=== PATIENT | male | born 1990 | race Caucasian/White ===

== ENCOUNTER 2017-11-01 13:08 | Emergency (ER) | payer OTHER ==
[2017-11-01 13:17] VITALS: TEMP 98.2
--- NOTE | 2017-11-01 14:51 | EDPHY ---
H & P Time Seen by Provider: 11/01/17 14:41 HPI/ROS: CHIEF COMPLAINT: Anxiety, hyperventilation, carpal pedal spasms HISTORY OF PRESENT ILLNESS: 27-year-old male generally healthy states that while he was studying he developed sudden onset of hyperventilation, dyspnea, carpal pedal spasms which continued until he arrived in the waiting room. He is currently asymptomatic. He denies cocaine or illicit drug use. Denies syncope or near-syncope. Denies chest pain. Denies back pain. REVIEW OF SYSTEMS: A ten point review of systems was performed and is negative with the exception of the items mentioned in the HPI PAST MEDICAL & SURGICAL HISTORY: No pertinent medical or surgical history SOCIAL HISTORY: No cocaine use PHYSICAL EXAM (Prior to examination, patient consented to physical exam, hands were washed and my usual and customary physical exam procedures followed) 1) GENERAL: Well-developed, well-nourished, alert and oriented. Appears to be in no acute distress. 2) HEAD: Normocephalic, atraumatic 3) HEENT: Pupils equal, round, reactive to light bilaterally. Sclera anicteric. Nasopharynx, oropharynx, clear, no lesions. Ears bilaterally with normal tympanic membranes. 4) NECK: Full range of motion, no meningeal signs. No bruit 5) LUNGS: Clear auscultation bilaterally, no wheezes, no rhonchi, no retractions. 6) HEART: Regular rate and rhythm, no murmur, no heave, no gallop. 7) ABDOMEN: No guarding, no rebound, no focal tenderness, negative McBurney's, negative Ramey's, negative Rovsing's, negative peritoneal sign, 8) MUSCULOSKELETAL: Moving all extremities, no focal areas of tenderness, no obvious trauma. No peripheral edema or discoloration. 9) BACK: No CVA tenderness, no midline vertebral tenderness, no fluctuance, no step-off, no obvious trauma, no visual or palpable abnormality. 10) SKIN: No rash, no petechiae. 11) Psychiatric: Patient is oriented X 3, there is no agitation. 12) NEURO: Awake, alert, and oriented to person, place and time. Answers questions appropriately. There were no obvious focal neurologic abnormalities. No cerebellar dysfunction. Normal steady gait. Upper and lower extremities bilaterally with strength 5 / 5, reflexes 2+. DIFFERENTIAL DIAGNOSIS: in no particular include but limited to pulmonary embolus, pneumothorax, acute anxiety reaction, Smoking Status: Never smoked Constitutional: Initial Vital Signs Temperature (C) 36.8 C 11/01/17 13:14 Heart Rate 95 11/01/17 13:14 Respiratory Rate 26 H 11/01/17 13:14 Blood Pressure 132/85 H 11/01/17 13:14 O2 Sat (%) 99 11/01/17 13:14 O2 Delivery Mode Room Air Allergies/Adverse Reactions: No Known Allergies Allergy (Verified 07/20/15 15:58) Home Medications: Medication Instructions Recorded Acid Pill 03/24/15 Ondansetron Odt [Zofran Odt 4 mg 4 mg PO Q4 PRN #6 tab 03/24/15 (*)] Pantoprazole Sodium [Protonix 40mg 40 mg PO DAILY #20 tab 03/24/15 (*)] LORazepam [Ativan 1 mg (RX)] 1 mg PO Q6 PRN #7 tab 11/01/17 MDM/Departure - [facility] ED Course/Re-evaluation: This patient is currently asymptomatic, his vital signs have been obtained, he is no longer tachypneic. I think his symptoms were more than likely secondary to acute anxiety reaction. Doubt PE, doubt pneumothorax. I do not think that diagnostic studies indicated from the emergency department. I have given him a small prescription for Ativan should his symptoms return. Usual and customary anxiety precautions instructions provided. He feels comfortable being discharged. Care of patient under supervision of secondary supervising physician Dr Sweeney . - Depart Disposition: Home, Routine, Self-Care Clinical Impression: Anxiety Condition: Good Instructions: Anxiety (ED) Additional Instructions: If you developed similar symptoms, take the medicine I prescribed you, if this does not work call 911 Stand Alone Forms: School Excuse Prescriptions: LORazepam [Ativan 1 mg (RX)] 1 mg PO Q6 PRN #7 tab PRN Reason: Anxiety [facility] [Clinic] - 1 day without fail
[2017-11-01 14:52] VITALS: BP 126/80; PULSE 84; RESP 18; O2SAT 96
== END 2017-11-01 15:17 | disposition home or self-care (01) ==
DX: F41.9 Anxiety disorder, unspecified (principal)

== ENCOUNTER 2017-12-06 04:49 | Emergency (ER) | payer OTHER ==
[~2017-12-06 04:49] MED LIST: ALBUTEROL 60 PUFFS/8 GM MDI IH SCH
[2017-12-06 04:54] VITALS: BP 124/87
[2017-12-06] MEDS ORDERED: ALBUTEROL 3 ML DEYVIAL ONE (05:05)
[2017-12-06] MEDS ORDERED: ALBUTEROL 3 ML DEYVIAL IH ONE (05:06)
[2017-12-06] MEDS ORDERED: ALBUTEROL INH PREPACK MDI TAKEHOME ONE (05:09)
--- NOTE | 2017-12-06 05:09 | EDPHY ---
H & P Stated Complaint: Shortness of breathe HPI/ROS: HPI CHIEF COMPLAINT: Shortness of breath and cough HISTORY OF PRESENT ILLNESS: This patient very pleasant 27-year-old male, is otherwise healthy does have a history of GERD, presents emergency room with cough and shortness of breath times 24 hr without any fever. He denies productive cough. States he is trying to sleep tonight both felt short of breath so decided come the emergency room. He states he felt anxious. He denies a bad cough or productive cough. He does endorse somewhat of a very mild dry cough and shortness of breath. Denies any significant pain in his chest. Denies fever. Denies recent travel. Past Medical History: Denies significant medical history except for GERD Past Surgical History: Denies any recent surgical history Social History: Does state he smokes tobacco daily. Denies illicit drugs. Denies alcohol. [employer] student. Family History: Noncontributory ROS REVIEW OF SYSTEMS: A comprehensive 10 point review of systems is otherwise negative aside from elements mentioned in the history of present illness. Exam Constitutional appears well nontoxic, triage nursing summary reviewed, vital signs reviewed, awake/alert. Eyes normal conjunctivae and sclera, EOMI, PERRLA. HENT normal inspection, atraumatic, moist mucus membranes, no epistaxis, neck supple/ no meningismus, no raccoon eyes. Respiratory I do not appreciate a significant wheezing on exam, clear lung sounds and good air movement, clear to auscultation bilaterally, normal breath sounds, no respiratory distress, no wheezing. Cardiovascular rate normal, regular rhythm, no murmur, no edema, distal pulses normal. Gastrointestinal soft, non-tender, no rebound, no guarding, normal bowel sounds, no distension, no pulsatile mass. Genitourinary no CVA tenderness. Musculoskeletal no midline vertebral tenderness, full range of motion, no calf swelling, no tenderness of extremities, no meningismus, good pulses, neurovascularly intact. Skin pink, warm, & dry, no rash, skin atraumatic. Neurologic awake, alert and oriented x 3, AAOx3, moves all 4 extremities equally, motor intact, sensory intact, CN II-XII intact, normal cerebellar, normal vision, normal speech. Psychiatric normal mood/affect. Heme/Lymph/Immune no lymphadenopathy. Differential Diagnosis: Bronchitis, reactive airway disease, pneumothorax, pneumonia, anxiety Medical Decision Making:Plan for this patient two view chest x-ray to rule pneumonia or pneumothorax. Albuterol nebulizer treatment and EKG and re- evaluate. Re-evaluation: EKG interpretation by me on record in [employer] system. Impression time of EKG 5:11 a.m., sinus rhythm rate of 87 otherwise no acute ischemia no signs of cardiac arrhythmia otherwise unremarkable EKG. ED x-ray chest two view: Negative for acute cardiopulmonary disease. No pneumonia. No pneumothorax. 0548: I did re-evaluate this patient resting comfortably in no acute distress. Feels better after albuterol breathing treatment. Chest x-ray shows no pneumonia. EKG is unremarkable. Will prescribe albuterol inhaler. Return precautions discussed. Source: Patient - Personal History Current Tetanus Diphtheria and Acellular Pertussis (TDAP): No - Medical/Surgical History Hx Asthma: No Hx Chronic Respiratory Disease: No Hx Diabetes: No Hx Cardiac Disease: No Hx Renal Disease: No Hx Cirrhosis: No Hx Alcoholism: No Hx HIV/AIDS: No Hx Splenectomy or Spleen Trauma: No Other PMH: Gastric Reflux - Social History Smoking Status: Never smoked Constitutional: Initial Vital Signs Temperature (C) 36.4 C 12/06/17 04:53 Heart Rate 85 12/06/17 04:53 Respiratory Rate 20 12/06/17 04:53 Blood Pressure 124/87 H 12/06/17 04:53 O2 Sat (%) 98 12/06/17 04:53 O2 Delivery Mode Room Air Allergies/Adverse Reactions: No Known Allergies Allergy (Verified 07/20/15 15:58) Home Medications: Medication Instructions Recorded Acid Pill 03/24/15 Ondansetron Odt [Zofran Odt 4 mg 4 mg PO Q4 PRN #6 tab 03/24/15 (*)] Pantoprazole Sodium [Protonix 40mg 40 mg PO DAILY #20 tab 03/24/15 (*)] LORazepam [Ativan 1 mg (RX)] 1 mg PO Q6 PRN #7 tab 11/01/17 Medical Decision Making - Data Points Medications Given: Discontinued Medications Albuterol (Proventil Neb) 3 ml IH EDNOW ONE Stop: 12/06/17 05:07 Last Admin: 12/06/17 05:08 Dose: 3 ml Departure - Departure Disposition: Home, Routine, Self-Care Clinical Impression: Cough Condition: Good Instructions: Cold Symptoms (ED), Acute Cough (ED) Additional Instructions: 1. Refrain from smoking tobacco. 2. Stay well-hydrated. 3. Return to the emergency room if you have worsening symptoms questions or concerns. Referrals: NONE *PRIMARY CARE P,. [Primary Care Provider] - As per Instructions
--- NOTE | 2017-12-06 05:12 | CPEKG ---
Heart Rate: 87 RR Interval: 690 P-R Interval: 156 QRSD Interval: 100 QT Interval: 348 QTC Interval: 419 P [place]: 61 QRS [place]: 84 T Wave [place]: 35 EKG Severity - BORDERLINE ECG - EKG Impression: SINUS RHYTHM EKG Impression: INFERIOR Q WAVES, PROBABLY NORMAL VARIATION Electronically Signed By: Uche Coley 06-Dec-2017 06:37:56
[2017-12-06 06:31] VITALS: PULSE 68; RESP 16; TEMP 97.9; O2SAT 100
== END 2017-12-06 06:32 | disposition home or self-care (01) ==
DX: R05 Cough (principal); F17.200 Nicotine dependence, unspecified, uncomplicated
CPT/HCPCS: J7613

== ENCOUNTER 2017-12-09 02:54 | Emergency (ER) | payer OTHER ==
[2017-12-09 03:10] VITALS: TEMP 98.1; O2SAT 97
[2017-12-09] MEDS ORDERED: KETOROLAC 15 MG/1 ML SDV IVP ONE (03:38)
[2017-12-09] MEDS ORDERED: NS 1,000 ML IV ONE (03:38)
[2017-12-09] MEDS ORDERED: FAMOTIDINE 20 MG/NACL 50 ML IV ONE (03:38)
[2017-12-09] MEDS ORDERED: KETOROLAC 15 MG/1 ML SDV ONE (03:53)
--- NOTE | 2017-12-09 03:57 | EDPHY ---
H & P Stated Complaint: c/o R abd pain/diarrhea x 2 days, worse pain with spicy food, burning pain HPI/ROS: HPI The patient presents with right-sided upper abdominal pain which has been present for the last 2 days and has been nearly constant. It is described as burning in nature and radiates upwards toward his throat. It is associated with burping and diarrhea. It is exacerbated by spicy foods. This is worse pain than he usually experiences from his GERD. He has been taking his usual PPI.. REVIEW OF SYSTEMS Constitutional: No fever, no chills. Eyes: No discharge. ENT: No sore throat. Cardiovascular: No chest pain, no palpitations. Respiratory: No cough, no shortness of breath. Gastrointestinal: Positive for abdominal pain, no vomiting. Genitourinary: No hematuria. Musculoskeletal: No back pain. Skin: No rashes. Neurological: No headache. PMHx: History of GERD PHYSICAL General Appearance: Alert, no distress Eyes: Pupils equal and round no pallor or injection ENT, Mouth: Mucous membranes moist Respiratory: There are no retractions, lungs are clear to auscultation Cardiovascular: Regular rate and rhythm Gastrointestinal: Abdomen is soft with mild tenderness in the right upper quadrant,, no masses, bowel sounds normal Neurological: A&O, moves all extremities Skin: Warm and dry, no rashes Musculoskeletal: Neck is supple non tender Extremities: symmetrical, full range of motion Psychiatric: Patient is oriented X 3, there is no agitation Source: Patient Exam Limitations: No limitations - Medical/Surgical History Hx Asthma: No Hx Chronic Respiratory Disease: No Hx Diabetes: No Hx Cardiac Disease: No Hx Renal Disease: No Hx Cirrhosis: No Hx Alcoholism: No Hx HIV/AIDS: No Hx Splenectomy or Spleen Trauma: No Other PMH: Gastric Reflux - Social History Smoking Status: Never smoked Constitutional: Initial Vital Signs Temperature (C) 36.7 C 12/09/17 02:58 Heart Rate 83 12/09/17 02:58 Respiratory Rate 16 12/09/17 02:58 Blood Pressure 139/93 H 12/09/17 02:58 O2 Sat (%) 97 12/09/17 02:58 O2 Delivery Mode Room Air Allergies/Adverse Reactions: No Known Allergies Allergy (Verified 12/09/17 03:04) Home Medications: Medication Instructions Recorded Pantoprazole Sodium [Protonix 40mg 40 mg PO DAILY #20 tab 03/24/15 (*)] LORazepam [Ativan 1 mg (RX)] 1 mg PO Q6 PRN #7 tab 11/01/17 ALBUTEROL SULFATE 12/09/17 Medical Decision Making Procedures: Bedside limited abdominal Ultrasound- performed and interpreted by me. Indication: Right upper quadrant abdominal pain Findings: No pericholecystic fluid, no gallstones seen, no gallbladder wall thickening Impression: No sonographic evidence of cholecystitis or cholelithiasis. Differential Diagnosis: 27-year-old male with history of GERD presents with 2 day history of right upper quadrant abdominal pain. Differential diagnosis includes cholecystitis, cholelithiasis, GERD, gastritis. In the emergency department, patient received IV fluids for presumed volume depletion, famotidine, Toradol. This caused significant reduction in his pain. Right upper quadrant side ultrasound was performed by me which showed no evidence of biliary disease. Plan for discharge with instructions for dietary modification, Tums or other antacids as needed. - Data Points Laboratory Results: Laboratory Results 12/09/17 03:50 12/09/17 03:50 12/09/17 12/09/17 03:50 03:50 WBC 6.19 10^3/uL 10^3/uL (3.80-9.50) RBC 5.81 10^6/uL 10^6/uL (4.40-6.38) Hgb 16.1 g/dL g/dL (13.7-17.5) Hct 45.2 % % (40.0-51.0) MCV 77.8 fL L fL (81.5-99.8) MCH 27.7 pg L pg (27.9-34.1) MCHC 35.6 g/dL g/dL (32.4-36.7) RDW 13.2 % % (11.5-15.2) Plt Count 306 10^3/uL 10^3/uL (150-400) MPV 9.4 fL fL (8.7-11.7) Neut % (Auto) 40.6 % % (39.3-74.2) Lymph % (Auto) 41.7 % % (15.0-45.0) Lipscomb % (Auto) 14.5 % H % (4.5-13.0) Eos % (Auto) 2.7 % % (0.6-7.6) Baso % (Auto) 0.3 % % (0.3-1.7) Nucleat RBC Rel Count 0.0 % % (0.0-0.2) Absolute Neuts (auto) 2.51 10^3/uL 10^3/uL (1.70-6.50) Absolute Lymphs (auto) 2.58 10^3/uL 10^3/uL (1.00-3.00) Absolute Monos (auto) 0.90 10^3/uL H 10^3/uL (0.30-0.80) Absolute Eos (auto) 0.17 10^3/uL 10^3/uL (0.03-0.40) Absolute Basos (auto) 0.02 10^3/uL 10^3/uL (0.02-0.10) Absolute Nucleated RBC 0.00 10^3/uL 10^3/uL (0-0.01) Immature Gran % 0.2 % % (0.0-1.1) Immature Gran # 0.01 10^3/uL 10^3/uL (0.00-0.10) Sodium 143 mEq/L mEq/L (135-145) Potassium 3.4 mEq/L L mEq/L (3.5-5.2) Chloride 106 mEq/L mEq/L (97-110) Carbon Dioxide 22 mEq/l mEq/l (22-31) Anion Gap 15 mEq/L mEq/L (8-16) BUN 9 mg/dL mg/dL (7-23) Creatinine 0.8 mg/dL mg/dL (0.7-1.3) Estimated GFR > 60 Glucose 106 mg/dL H mg/dL (70-100) Calcium 9.8 mg/dL mg/dL (8.5-10.4) Total Bilirubin 0.5 mg/dL mg/dL (0.1-1.4) AST 28 IU/L IU/L (17-59) ALT 61 IU/L IU/L (21-72) Alkaline Phosphatase 103 IU/L IU/L (38-126) Total Protein 7.4 g/dL g/dL (6.3-8.2) Albumin 4.2 g/dL g/dL (3.5-5.0) Lipase 51 IU/L IU/L (23-300) Medications Given: Discontinued Medications Sodium Chloride (Ns) 1,000 mls @ 0 mls/hr IV EDNOW ONE; Wide Open PRN Reason: Protocol Stop: 12/09/17 03:39 Last Admin: 12/09/17 04:00 Dose: 1,000 mls Famotidine/Sodium Chloride (Pepcid 20 Mg (Premix)) 50 mls @ 200 mls/hr IV EDNOW ONE Stop: 12/09/17 03:52 Last Admin: 12/09/17 03:55 Dose: 50 mls Ketorolac Tromethamine (Toradol) 15 mg IVP EDNOW ONE Stop: 12/09/17 03:39 Last Admin: 12/09/17 03:54 Dose: 15 mg Departure - Departure Disposition: Home, Routine, Self-Care Clinical Impression: GERD (gastroesophageal reflux disease), RUQ abdominal pain Condition: Good Instructions: Diet for Stomach Ulcers and Gastritis (ED), Gastroesophageal Reflux Disease (ED) Additional Instructions: Please return to the emergency department if your worse in any way. Referrals: NONE *PRIMARY CARE P,. [Primary Care Provider] - As per Instructions
[2017-12-09 03:58] LABS: PLATELET COUNT 306 10^3/uL (150-400)
[2017-12-09 04:52] VITALS: BP 104/71; PULSE 66; RESP 18
== END 2017-12-09 04:56 | disposition home or self-care (01) ==
DX: K21.9 Gastro-esophageal reflux disease without esophagitis (principal); E86.9 Volume depletion, unspecified
CPT/HCPCS: 96365; J1885

== ENCOUNTER 2017-12-11 02:22 | Emergency (ER) | payer OTHER ==
[2017-12-11 02:29] VITALS: TEMP 98.1; O2SAT 98
[2017-12-11] MEDS ORDERED: IPRATROPIUM/ALBUTEROL 3 ML DEYVIAL IH ONE (02:57)
--- NOTE | 2017-12-11 03:51 | EDPHY ---
H & P Stated Complaint: abd discomfort/sob Time Seen by Provider: 12/11/17 02:37 HPI/ROS: HPI The patient presents with episodes of shortness of breath which have been present for the last 1 week. They mostly occur in the environmental marketer hours when he is trying to go to sleep. He says he cannot get a deep breath in. This is associated with tingling of his hands and feet. He does not have any coughing, runny nose, chest pain. He has had increasing symptoms of his GERD including epigastric abdominal pain and nausea. I saw him in the emergency department several days ago for this and he had labs and ultrasound which were all unremarkable. He is taking some sort of antacid, I think some med [place]. He is trying to avoid spicy foods, however last consumed these about 3 days ago. He says he is a bit worried about the upcoming school semester.. REVIEW OF SYSTEMS Constitutional: No fever, no chills. Eyes: No discharge. ENT: No sore throat. Cardiovascular: No chest pain, no palpitations. Respiratory: No cough, positive shortness of breath. Gastrointestinal: No abdominal pain, no vomiting. Genitourinary: No hematuria. Musculoskeletal: No back pain. Skin: No rashes. Neurological: No headache. PMHx: GERD Soc Hx: College student PHYSICAL General Appearance: Alert, no distress Eyes: Pupils equal and round no pallor or injection ENT, Mouth: Mucous membranes moist Respiratory: There are no retractions, lungs are clear to auscultation Cardiovascular: Regular rate and rhythm Gastrointestinal: Abdomen is soft and non-tender, no masses, bowel sounds normal Neurological: A&O, moves all extremities Skin: Warm and dry, no rashes Musculoskeletal: Neck is supple non tender Extremities: symmetrical, full range of motion Psychiatric: Patient is oriented X 3, there is no agitation Source: Patient Exam Limitations: No limitations - Personal History Current Tetanus Diphtheria and Acellular Pertussis (TDAP): Yes - Medical/Surgical History Hx Asthma: No Hx Chronic Respiratory Disease: No Hx Diabetes: No Hx Cardiac Disease: No Hx Renal Disease: No Hx Cirrhosis: No Hx Alcoholism: No Hx HIV/AIDS: No Hx Splenectomy or Spleen Trauma: No Other PMH: Gastric Reflux - Social History Smoking Status: Never smoked Constitutional: Initial Vital Signs Temperature (C) 36.7 C 12/11/17 02:27 Heart Rate 77 01/12/18 02:27 Respiratory Rate 16 12/11/17 02:27 Blood Pressure 128/78 H 12/11/17 02:27 O2 Sat (%) 98 12/11/17 02:27 O2 Delivery Mode Room Air Allergies/Adverse Reactions: No Known Allergies Allergy (Verified 12/11/17 02:26) Home Medications: Medication Instructions Recorded Pantoprazole Sodium [Protonix 40mg 40 mg PO DAILY #20 tab 03/24/15 (*)] LORazepam [Ativan 1 mg (RX)] 1 mg PO Q6 PRN #7 tab 11/01/17 ALBUTEROL SULFATE 12/09/17 Medical Decision Making - Diagnostics Imaging Results: Chest x-ray two view shows no cardiomegaly, no effusion, no pneumothorax, interpreted by me, radiology interpretation is pending. Imaging: I viewed and interpreted images myself Differential Diagnosis: This is a 27-year-old male with history of GERD who presents from home with episodes of shortness of breath that occur at night, associated with paresthesias of hands and feet. On exam, he is well-appearing, breathing comfortably, with normal oxygen saturation. Lungs sound clear. I suspect he may be having panic attacks. I also consider asthma with exacerbation, pneumonia or pneumothorax. In the emergency department, patient received a DuoNeb without any improvement in his symptoms. He had a chest x-ray which is unremarkable. I doubt PE given he is perc criteria negative. I have explained to him I suspect he may be having panic attacks and we discussed treatment for these including breathing into a paper bag and getting out of bed and walking until his symptoms resolved. He is in agreement with this plan. - Data Points Medications Given: Discontinued Medications Albuterol/Ipratropium (Duoneb) 3 ml IH EDNOW ONE Stop: 12/11/17 02:58 Last Admin: 12/11/17 03:06 Dose: 3 ml Departure - Departure Disposition: Home, Routine, Self-Care Clinical Impression: Shortness of breath GERD (gastroesophageal reflux disease) Qualifiers: Esophagitis presence: without esophagitis Qualified Code(s): K21.9 - Gastro- esophageal reflux disease without esophagitis Condition: Good Instructions: Diet for Stomach Ulcers and Gastritis (ED), Gastroesophageal Reflux Disease (ED), Anxiety (ED), Anxiolysis in Adults (ED) Additional Instructions: If your having trouble breathing again, you should try breathing into a paper bag and walking around for about 15 min. Please avoid any spicy or acidic foods. I would like you to take your GERD medication on a daily basis for the next 1 week or until your feeling better. You should return to the emergency department if your worse in any way. Referrals: [facility],. [Clinic] - As per Instructions
[2017-12-11 04:26] VITALS: BP 100/80; PULSE 65; RESP 18
== END 2017-12-11 04:26 | disposition home or self-care (01) ==
DX: R06.02 Shortness of breath (principal); K21.9 Gastro-esophageal reflux disease without esophagitis

== ENCOUNTER 2017-12-14 00:30 | Emergency (ER) | payer OTHER ==
[2017-12-14 00:37] VITALS: TEMP 98.2
--- NOTE | 2017-12-14 00:47 | EDPHY ---
H & P Stated Complaint: SOB & anxiety here for same thing last week HPI/ROS: HPI CHIEF COMPLAINT: Anxiety, GERD HISTORY OF PRESENT ILLNESS: This patient is a 27-year-old male, he has significant past medical history for gastritis and GERD, seen in the emergency room multiple times for this. Additionally he has underlying anxiety. He presents emergency room stating that he has school that is starting soon in next 48 hrs. Patient states he cannot sleep tonight. [place] very anxious with tingling in his hands and feet. He is concerned and anxious about school. Past Medical History: Anxiety, GERD, gastritis Past Surgical History: No recent surgery Social History: Lives locally [facility] student denies drugs alcohol tobacco products. Family History: Noncontributory ROS REVIEW OF SYSTEMS: A comprehensive 10 point review of systems is otherwise negative aside from elements mentioned in the history of present illness. Exam Constitutional appears well nontoxic anxious, triage nursing summary reviewed, vital signs reviewed, awake/alert. Eyes normal conjunctivae and sclera, EOMI, PERRLA. HENT normal inspection, atraumatic, moist mucus membranes, no epistaxis, neck supple/ no meningismus, no raccoon eyes. Respiratory clear to auscultation bilaterally, normal breath sounds, no respiratory distress, no wheezing. Cardiovascular rate normal, regular rhythm, no murmur, no edema, distal pulses normal. Gastrointestinal soft, non-tender, no rebound, no guarding, normal bowel sounds, no distension, no pulsatile mass. Genitourinary no CVA tenderness. Musculoskeletal no midline vertebral tenderness, full range of motion, no calf swelling, no tenderness of extremities, no meningismus, good pulses, neurovascularly intact. Skin pink, warm, & dry, no rash, skin atraumatic. Neurologic awake, alert and oriented x 3, AAOx3, moves all 4 extremities equally, motor intact, sensory intact, CN II-XII intact, normal cerebellar, normal vision, normal speech. Psychiatric anxious, normal mood/affect. Heme/Lymph/Immune no lymphadenopathy. Differential Diagnosis: Includes but is not limited to in a particular order, gastritis, GERD, anxiety, panic disorder Medical Decision Making: Plan for this patient 1 mg p.o. Ativan, and a GI cocktail and re-evaluate. Re-evaluation: 0149: Patient re-evaluated this time feeling much better. No acute distress. Recommend follow up with primary care doctor. I am previously GI scheduled appointment. Return precautions discussed. Source: Patient - Personal History Current Tetanus/Diphtheria Vaccine: Unsure Current Tetanus Diphtheria and Acellular Pertussis (TDAP): Unsure - Medical/Surgical History Hx Asthma: No Hx Chronic Respiratory Disease: No Hx Diabetes: No Hx Cardiac Disease: No Hx Renal Disease: No Hx Cirrhosis: No Hx Alcoholism: No Hx HIV/AIDS: No Hx Splenectomy or Spleen Trauma: No Other PMH: Gastric Reflux - Social History Smoking Status: Never smoked Constitutional: Initial Vital Signs Temperature (C) 36.8 C 12/14/17 00:35 Heart Rate 85 12/14/17 00:35 Respiratory Rate 16 12/14/17 00:35 Blood Pressure 144/90 H 12/14/17 00:35 O2 Sat (%) 100 12/14/17 00:35 O2 Delivery Mode Room Air Allergies/Adverse Reactions: No Known Allergies Allergy (Verified 12/11/17 02:26) Home Medications: Medication Instructions Recorded Pantoprazole Sodium [Protonix 40mg 40 mg PO DAILY #20 tab 03/24/15 (*)] LORazepam [Ativan 1 mg (RX)] 1 mg PO Q6 PRN #7 tab 11/01/17 ALBUTEROL SULFATE 12/09/17 Medical Decision Making - Data Points Medications Given: Discontinued Medications Al Hydroxide/Mg Hydroxide (Maalox Susp) 30 ml PO ONCE ONE Stop: 12/14/17 00:53 Last Admin: 12/14/17 01:09 Dose: 30 ml Hyoscyamine Sulfate (Levsin, Hyomax-Sl) 0.25 mg PO ONCE ONE Stop: 12/14/17 00:53 Last Admin: 12/14/17 01:09 Dose: 0.125 mg Lidocaine (Lidocaine 2% Viscous) 15 ml PO ONCE ONE Stop: 12/14/17 00:53 Last Admin: 12/14/17 01:09 Dose: 15 ml Lorazepam (Ativan) 1 mg PO ONCE ONE Stop: 12/14/17 00:53 Last Admin: 12/14/17 01:08 Dose: 1 mg Departure - Departure Disposition: Home, Routine, Self-Care Clinical Impression: Anxiety Condition: Good Instructions: Anxiety (ED) Additional Instructions: 1. Follow up with her primary care doctor. 2. Return emergency room if you have worsening symptoms questions or concerns. Referrals: NONE *PRIMARY CARE P,. [Primary Care Provider] - As per Instructions
[2017-12-14] MEDS ORDERED: MAG HYDROX/AL HYDROX/SIMETH 30 ML UDCUP PO ONE (00:52)
[2017-12-14] MEDS ORDERED: LIDOCAINE 2% VISCOUS 15 ML UDCUP PO ONE (00:52)
[2017-12-14] MEDS ORDERED: LORazepam 1 MG TAB PO ONE (00:52)
[2017-12-14] MEDS: HYOSCYAMINE SULFATE 0.125 MG TAB PO ONE (01:09)
[2017-12-14 02:16] VITALS: BP 138/88; PULSE 76; RESP 18; O2SAT 96
== END 2017-12-14 02:15 | disposition home or self-care (01) ==
DX: F41.9 Anxiety disorder, unspecified (principal)

== ENCOUNTER 2017-12-15 00:17 | Emergency (ER) | payer OTHER ==
[2017-12-15 00:26] VITALS: TEMP 97.7
--- NOTE | 2017-12-15 00:38 | EDPHY ---
H & P Stated Complaint: SOB, anxiety HPI/ROS: HPI CHIEF COMPLAINT: Shortness of breath and anxiety HISTORY OF PRESENT ILLNESS: This patient 27-year-old male, well known to myself as I have seen him multiple times emergency room, he has been here recently fairly frequently for anxiety and shortness of breath. Patient presents to the emergency room after I saw him last night for anxiety shortness of breath. Patient states he was trying to get sleeping felt very anxious states he felt heart racing and could not get to sleep. He started feeling numbness tingling in his hands and started breathing heavily decided come the emergency room for further evaluation. Denies recent illness. Denies chest pain. States he feels anxious. Past Medical History: Anxiety, GERD Past Surgical History: No recent surgery Social History: [employer] student, denies illicit drugs patient tobacco. Family History: Noncontributory ROS REVIEW OF SYSTEMS: A comprehensive 10 point review of systems is otherwise negative aside from elements mentioned in the history of present illness. Exam Constitutional anxious appearing, hyperventilating, triage nursing summary reviewed, vital signs reviewed, awake/alert. Eyes normal conjunctivae and sclera, EOMI, PERRLA. HENT normal inspection, atraumatic, moist mucus membranes, no epistaxis, neck supple/ no meningismus, no raccoon eyes. Respiratory hyperventilating, normal breath sounds, no respiratory distress, no wheezing. Cardiovascular rate normal, regular rhythm, no murmur, no edema, distal pulses normal. Gastrointestinal soft, non-tender, no rebound, no guarding, normal bowel sounds, no distension, no pulsatile mass. Genitourinary no CVA tenderness. Musculoskeletal no midline vertebral tenderness, full range of motion, no calf swelling, no tenderness of extremities, no meningismus, good pulses, neurovascularly intact. Skin pink, warm, & dry, no rash, skin atraumatic. Neurologic awake, alert and oriented x 3, AAOx3, moves all 4 extremities equally, motor intact, sensory intact, CN II-XII intact, normal cerebellar, normal vision, normal speech. Psychiatric anxious Heme/Lymph/Immune no lymphadenopathy. Differential Diagnosis: Acute anxiety, panic attack, electrolyte disturbance, dehydration, cardiac arrhythmia, pneumothorax. Medical Decision Making: Plan for this patient IV established with IV Ativan 1 mg, check basic blood work, EKG for palpitations, chest x-ray, IV fluids and re- evaluate. Re-evaluation: 0157: Re-examination at this time this patient is feeling much better after IV Ativan. His anxiety is greatly improved. His chest x-ray has been reviewed and is unremarkable. I do not appreciate any acute cardiopulmonary disease. His EKG is unremarkable. EKG interpretation by me on record in [employer] system. Impression time of EKG 1:08 a.m., sinus rhythm rate of 81 no acute ischemia. No ST elevation or ST depression or T-wave abnormalities. Unremarkable EKG. Blood work is also reviewed unremarkable. I highly recommend this patient follows up with his primary care doctor or would not work [facility]. I prescribed him Ativan for anxiety as an emergency. Recommend follows up with GI, primary care doctor and [facility]. Return precautions discussed. Source: Patient - Personal History Current Tetanus/Diphtheria Vaccine: Unsure Current Tetanus Diphtheria and Acellular Pertussis (TDAP): Unsure - Medical/Surgical History Hx Asthma: No Hx Chronic Respiratory Disease: No Hx Diabetes: No Hx Cardiac Disease: No Hx Renal Disease: No Hx Cirrhosis: No Hx Alcoholism: No Hx HIV/AIDS: No Hx Splenectomy or Spleen Trauma: No Other PMH: Gastric Reflux - Social History Smoking Status: Never smoked Constitutional: Initial Vital Signs Temperature (C) 36.5 C 12/15/17 00:23 Heart Rate 83 12/15/17 00:23 Respiratory Rate 18 12/15/17 00:23 Blood Pressure 115/79 12/15/17 00:23 O2 Sat (%) 99 12/15/17 00:23 O2 Delivery Mode Room Air Allergies/Adverse Reactions: No Known Allergies Allergy (Verified 12/11/17 02:26) Home Medications: Medication Instructions Recorded Pantoprazole Sodium [Protonix 40mg 40 mg PO DAILY #20 tab 03/24/15 (*)] LORazepam [Ativan] 1 mg PO DAILY #5 tablet 12/15/17 Ranitidine HCl [Zantac] 150 mg PO DAILY #30 tablet 12/15/17 Medical Decision Making - Data Points Laboratory Results: Laboratory Results 12/15/17 01:00 12/15/17 01:00 12/15/17 12/15/17 01:00 01:00 WBC 6.43 10^3/uL 10^3/uL (3.80-9.50) RBC 5.73 10^6/uL 10^6/uL (4.40-6.38) Hgb 15.7 g/dL g/dL (13.7-17.5) Hct 45.0 % % (40.0-51.0) MCV 78.5 fL L fL (81.5-99.8) MCH 27.4 pg L pg (27.9-34.1) MCHC 34.9 g/dL g/dL (32.4-36.7) RDW 12.9 % % (11.5-15.2) Plt Count 353 10^3/uL 10^3/uL (150-400) MPV 9.7 fL fL (8.7-11.7) Neut % (Auto) 40.6 % % (39.3-74.2) Lymph % (Auto) 42.5 % % (15.0-45.0) [place] % (Auto) 13.7 % H % (4.5-13.0) Eos % (Auto) 2.5 % % (0.6-7.6) Baso % (Auto) 0.5 % % (0.3-1.7) Nucleat RBC Rel Count 0.0 % % (0.0-0.2) Absolute Neuts (auto) 2.62 10^3/uL 10^3/uL (1.70-6.50) Absolute Lymphs (auto) 2.73 10^3/uL 10^3/uL (1.00-3.00) Absolute Monos (auto) 0.88 10^3/uL H 10^3/uL (0.30-0.80) Absolute Eos (auto) 0.16 10^3/uL 10^3/uL (0.03-0.40) Absolute Basos (auto) 0.03 10^3/uL 10^3/uL (0.02-0.10) Absolute Nucleated RBC 0.00 10^3/uL 10^3/uL (0-0.01) Immature Gran % 0.2 % % (0.0-1.1) Immature Gran # 0.01 10^3/uL 10^3/uL (0.00-0.10) Sodium 142 mEq/L mEq/L (135-145) Potassium 4.0 mEq/L mEq/L (3.5-5.2) Chloride 102 mEq/L mEq/L (97-110) Carbon Dioxide 24 mEq/l mEq/l (22-31) Anion Gap 16 mEq/L mEq/L (8-16) BUN 13 mg/dL mg/dL (7-23) Creatinine 0.9 mg/dL mg/dL (0.7-1.3) Estimated GFR > 60 Glucose 98 mg/dL mg/dL (70-100) Calcium 9.7 mg/dL mg/dL (8.5-10.4) Total Bilirubin 0.8 mg/dL mg/dL (0.1-1.4) Conjugated Bilirubin 0.3 mg/dL mg/dL (0.0-0.5) Unconjugated Bilirubin 0.5 mg/dL mg/dL (0.0-1.1) AST 25 IU/L IU/L (17-59) ALT 38 IU/L IU/L (21-72) Alkaline Phosphatase 101 IU/L IU/L (38-126) Total Protein 7.6 g/dL g/dL (6.3-8.2) Albumin 4.4 g/dL g/dL (3.5-5.0) Lipase 95 IU/L IU/L (23-300) Medications Given: Discontinued Medications Sodium Chloride (Ns) 1,000 mls @ 0 mls/hr IV EDNOW ONE; Wide Open PRN Reason: Protocol Stop: 12/15/17 00:42 Last Admin: 12/15/17 00:59 Dose: 1,000 mls Lorazepam (Ativan Injection) 1 mg IVP EDNOW ONE Stop: 12/15/17 00:43 Last Admin: 12/15/17 00:59 Dose: 1 mg Departure - Departure Disposition: Home, Routine, Self-Care Clinical Impression: Anxiety Condition: Good Instructions: Anxiety (ED) Additional Instructions: 1. Follow up with your primary care doctor. 2. Return emergency room if you have worsening symptoms questions or concerns. 3. Take her Zantac as prescribed. 4. Only take Ativan if your feeling very anxious. This medication can make her sleepy do not drive while taking it. Do not mix it with alcohol. Referrals: NONE *PRIMARY CARE P,. [Primary Care Provider] - As per Instructions Prescriptions: LORazepam [Ativan] 1 mg PO DAILY #5 tablet Ranitidine HCl [Zantac] 150 mg PO DAILY #30 tablet
[2017-12-15] MEDS ORDERED: NS 1,000 ML IV ONE (00:41)
[2017-12-15] MEDS ORDERED: LORazepam 2 MG/ML INJ IVP ONE (00:42)
[2017-12-15 01:10] LABS: PLATELET COUNT 353 10^3/uL (150-400)
--- NOTE | 2017-12-15 01:11 | CPEKG ---
Heart Rate: 81 RR Interval: 741 P-R Interval: 168 QRSD Interval: 108 QT Interval: 368 QTC Interval: 428 P [place]: 51 QRS [place]: 89 T Wave [place]: 34 EKG Severity - ABNORMAL ECG - EKG Impression: SINUS RHYTHM EKG Impression: INCOMPLETE RIGHT BUNDLE BRANCH BLOCK Electronically Signed By: Uche Coley 15-Dec-2017 06:25:56
[2017-12-15 02:26] VITALS: BP 106/72; PULSE 78; RESP 16; O2SAT 97
== END 2017-12-15 02:27 | disposition home or self-care (01) ==
DX: F41.9 Anxiety disorder, unspecified (principal); E86.9 Volume depletion, unspecified
CPT/HCPCS: 96374; J2060

== ENCOUNTER 2017-12-18 15:54 | Emergency (ER) | payer OTHER ==
--- NOTE | 2017-12-18 16:00 | EDPHY ---
H & P HPI/ROS: HPI CHIEF COMPLAINT: Anxiety, chest pain HISTORY OF PRESENT ILLNESS: This patient is a 27-year-old male who I am very familiar with that seen multiple times in the emergency room he presents to the ER by ambulance for chest pain and anxiety. Patient states that he was resting comfortably at home when all the sudden he developed numbness tingling throughout his entire body in his body felt very heavy. He distally reports that he developed some chest pain left-sided. Worse when he takes a deep breath in. Denies productive cough, fever, vomiting. Past Medical History: Anxiety, GERD Past Surgical History: Denies significant surgical history Social History: [employer] student, denies drugs alcohol tobacco products. Family History: Noncontributory ROS REVIEW OF SYSTEMS: A comprehensive 10 point review of systems is otherwise negative aside from elements mentioned in the history of present illness. Exam Constitutional appears well nontoxic in no acute distress, anxious, triage nursing summary reviewed, vital signs reviewed, awake/alert. Eyes normal conjunctivae and sclera, EOMI, PERRLA. HENT normal inspection, atraumatic, moist mucus membranes, no epistaxis, neck supple/ no meningismus, no raccoon eyes. Respiratory clear to auscultation bilaterally, normal breath sounds, no respiratory distress, no wheezing. Cardiovascular rate normal, regular rhythm, no murmur, no edema, distal pulses normal. Gastrointestinal soft, non-tender, no rebound, no guarding, normal bowel sounds, no distension, no pulsatile mass. Genitourinary no CVA tenderness. Musculoskeletal no midline vertebral tenderness, full range of motion, no calf swelling, no tenderness of extremities, no meningismus, good pulses, neurovascularly intact. Skin pink, warm, & dry, no rash, skin atraumatic. Neurologic awake, alert and oriented x 3, AAOx3, moves all 4 extremities equally, motor intact, sensory intact, CN II-XII intact, normal cerebellar, normal vision, normal speech. Psychiatric acute anxiety Heme/Lymph/Immune no lymphadenopathy. Differential Diagnosis: Includes but is not limited to in a particular order acute anxiety, panic attack, pneumothorax, pneumonia, PE, pericarditis, myocarditis Medical Decision Making: Plan for this patient IV Ativan 1 mg, IV fluids, chest x-ray two view, EKG, basic blood work, D-dimer and troponin. Re-evaluation: 1715: ED x-ray chest two view reviewed by myself. No evidence of pneumothorax or pneumonia. Unremarkable two view chest x-ray. EKG interpretation by me on record in [employer] system. Impression time of EKG 1608, sinus rhythm rate of 77 no acute ischemic change appreciated. Unremarkable EKG. 1753: Patient's blood work reviewed. Unremarkable negative D-dimer. Negative troponin. EKG is nonischemic. Chest x-ray unremarkable. Patient feeling better on re-evaluation after IV Ativan 1 mg. IV fluids. Eager to be discharged from the emergency room. I explained that she follow up closely with his primary care doctor about his anxiety. Return precautions discussed with him. Source: Patient, EMS - Medical/Surgical History Hx Asthma: No Hx Chronic Respiratory Disease: No Hx Diabetes: No Hx Cardiac Disease: No Hx Renal Disease: No Hx Cirrhosis: No Hx Alcoholism: No Hx HIV/AIDS: No Hx Splenectomy or Spleen Trauma: No Other PMH: Gastric Reflux - Social History Smoking Status: Never smoked Constitutional: Initial Vital Signs Temperature (C) 36.9 C 12/18/17 16:02 Heart Rate 77 12/18/17 16:02 Respiratory Rate 12 12/18/17 16:02 Blood Pressure 130/92 H 12/18/17 16:02 O2 Sat (%) 98 12/18/17 16:02 O2 Delivery Mode Room Air Allergies/Adverse Reactions: No Known Allergies Allergy (Verified 12/11/17 02:26) Home Medications: Medication Instructions Recorded Pantoprazole Sodium [Protonix 40mg 40 mg PO DAILY #20 tab 03/24/15 (*)] LORazepam [Ativan] 1 mg PO DAILY #5 tablet 12/15/17 Ranitidine HCl [Zantac] 150 mg PO DAILY #30 tablet 12/15/17 Medical Decision Making - Diagnostics Imaging Results: Imaging Impressions Chest X-Ray 12/18/17 16:03 Impression: No acute findings in the chest. - Data Points Laboratory Results: Laboratory Results 12/18/17 16:00 12/18/17 16:00 12/18/17 12/18/17 12/18/17 16:00 16:00 16:00 WBC RBC Hgb Hct MCV MCH MCHC RDW Plt Count MPV Neut % (Auto) Lymph % (Auto) [place] % (Auto) Eos % (Auto) Baso % (Auto) Nucleat RBC Rel Count Absolute Neuts (auto) Absolute Lymphs (auto) Absolute Monos (auto) Absolute Eos (auto) Absolute Basos (auto) Absolute Nucleated RBC Immature Gran % Immature Gran # PT 14.7 SEC SEC (12.0-15.0) INR 1.13 (0.83-1.16) APTT 30.5 SEC SEC (23.0-38.0) D-Dimer 0.31 ug/mLFEU ug/mLFEU (0.00-0.50) Sodium 142 mEq/L mEq/L (135-145) Potassium 4.2 mEq/L mEq/L (3.5-5.2) Chloride 101 mEq/L mEq/L (97-110) Carbon Dioxide 24 mEq/l mEq/l (22-31) Anion Gap 17 mEq/L H mEq/L (8-16) BUN 11 mg/dL mg/dL (7-23) Creatinine 1.0 mg/dL mg/dL (0.7-1.3) Estimated GFR > 60 Glucose 105 mg/dL H mg/dL (70-100) Calcium 9.9 mg/dL mg/dL (8.5-10.4) Magnesium 2.0 mg/dL mg/dL (1.6-2.3) Total Bilirubin 0.7 mg/dL mg/dL (0.1-1.4) Conjugated Bilirubin 0.3 mg/dL mg/dL (0.0-0.5) Unconjugated Bilirubin 0.4 mg/dL mg/dL (0.0-1.1) AST 24 IU/L IU/L (17-59) ALT 40 IU/L IU/L (21-72) Alkaline Phosphatase 107 IU/L IU/L (38-126) Troponin I < 0.012 ng/mL ng/mL (0.000-0.034) Total Protein 8.1 g/dL g/dL (6.3-8.2) Albumin 4.7 g/dL g/dL (3.5-5.0) Lipase 115 IU/L IU/L (23-300) 12/18/17 16:00 WBC 5.33 10^3/uL 10^3/uL (3.80-9.50) RBC 5.74 10^6/uL 10^6/uL (4.40-6.38) Hgb 16.0 g/dL g/dL (13.7-17.5) Hct 45.3 % % (40.0-51.0) MCV 78.9 fL L fL (81.5-99.8) MCH 27.9 pg pg (27.9-34.1) MCHC 35.3 g/dL g/dL (32.4-36.7) RDW 13.0 % % (11.5-15.2) Plt Count 342 10^3/uL 10^3/uL (150-400) MPV 9.9 fL fL (8.7-11.7) Neut % (Auto) 45.4 % % (39.3-74.2) Lymph % (Auto) 41.1 % % (15.0-45.0) [place] % (Auto) 11.4 % % (4.5-13.0) Eos % (Auto) 1.5 % % (0.6-7.6) Baso % (Auto) 0.4 % % (0.3-1.7) Nucleat RBC Rel Count 0.0 % % (0.0-0.2) Absolute Neuts (auto) 2.42 10^3/uL 10^3/uL (1.70-6.50) Absolute Lymphs (auto) 2.19 10^3/uL 10^3/uL (1.00-3.00) Absolute Monos (auto) 0.61 10^3/uL 10^3/uL (0.30-0.80) Absolute Eos (auto) 0.08 10^3/uL 10^3/uL (0.03-0.40) Absolute Basos (auto) 0.02 10^3/uL 10^3/uL (0.02-0.10) Absolute Nucleated RBC 0.00 10^3/uL 10^3/uL (0-0.01) Immature Gran % 0.2 % % (0.0-1.1) Immature Gran # 0.01 10^3/uL 10^3/uL (0.00-0.10) PT INR APTT D-Dimer Sodium Potassium Chloride Carbon Dioxide Anion Gap BUN Creatinine Estimated GFR Glucose Calcium Magnesium Total Bilirubin Conjugated Bilirubin Unconjugated Bilirubin AST ALT Alkaline Phosphatase Troponin I Total Protein Albumin Lipase Medications Given: Discontinued Medications Sodium Chloride (Ns) 1,000 mls @ 0 mls/hr IV EDNOW ONE; Wide Open PRN Reason: Protocol Stop: 12/18/17 16:04 Last Admin: 12/18/17 16:34 Dose: 1,000 mls Lorazepam (Ativan Injection) 1 mg IVP EDNOW ONE Stop: 12/18/17 16:04 Last Admin: 12/18/17 16:35 Dose: 1 mg Departure - Departure Disposition: Home, Routine, Self-Care Clinical Impression: Anxiety Condition: Good Instructions: Anxiety (ED) Additional Instructions: 1. Please follow up with your primary care doctor. 2. Return emergency room if you have worsening symptoms questions or concerns. Referrals: Patient,NotPresent [Unknown] - As per Instructions
[2017-12-18 16:03] VITALS: TEMP 98.4; O2SAT 98
[2017-12-18] MEDS ORDERED: NS 1,000 ML IV ONE (16:03)
[2017-12-18] MEDS ORDERED: LORazepam 2 MG/ML INJ IVP ONE (16:03)
[2017-12-18 16:10] LABS: PLATELET COUNT 342 10^3/uL (150-400)
--- NOTE | 2017-12-18 16:10 | CPEKG ---
Heart Rate: 77 RR Interval: 779 P-R Interval: 156 QRSD Interval: 102 QT Interval: 368 QTC Interval: 417 P [place]: 47 QRS [place]: 84 T Wave [place]: 45 EKG Severity - NORMAL ECG - EKG Impression: SINUS RHYTHM Electronically Signed By: Uche Coley 18-Dec-2017 22:47:12
[2017-12-18 16:20] LABS: INR 1.13 (0.83-1.16); PROTIME(PATIENT) 14.7 SEC (12.0-15.0)
[2017-12-18 18:14] VITALS: BP 108/60; PULSE 67; RESP 14
== END 2017-12-18 18:11 | disposition home or self-care (01) ==
LOC: EDUNIT#
DX: F41.9 Anxiety disorder, unspecified (principal); E86.9 Volume depletion, unspecified
CPT/HCPCS: 96374; J2060

== ENCOUNTER 2018-07-25 03:37 | Emergency (ER) | payer OTHER ==
[2018-07-25] MEDS ORDERED: MAG HYDROX/AL HYDROX/SIMETH 30 ML UDCUP PO ONE (04:11)
[2018-07-25] MEDS ORDERED: LIDOCAINE 2% VISCOUS 15 ML UDCUP PO ONE (04:11)
--- NOTE | 2018-07-25 05:10 | EDPHY ---
H & P Stated Complaint: SOB/FEVER X 1 DAY Time Seen by Provider: 07/25/18 03:54 HPI/ROS: Chief Complaint: Short of breath, epigastric discomfort HPI: 28-year-old male with a history of GERD presenting with epigastric discomfort and difficulty breathing which started yesterday. No cough. He states he felt feverish but did not take his temperature. States that this does not feel like his usual reflux. He has not taken his reflux medications since yesterday morning. No nausea or vomiting. No diarrhea. No recent travel. No leg pain or swelling. Patient has had this multiple times has been seen here multiple times in the past he has had multiple chest x-rays in scans done which have been unremarkable. He has not followed up with his primary care physician or fire suppression captain recently. ROS: 10 point Review of Systems is negative except as noted in the HPI. PMH: GERD Social History: No smoking, no alcohol, no recreational drug use Family History: non-contributory Physical Exam: Gen: Awake, Alert, No Distress HEENT: Nose: no rhinorrhea Eyes: PERRLA, EOMI Mouth: Moist mucosa Neck: Supple, no JVD Chest: nontender, lungs clear to auscultation Heart: S1, S2 normal, no murmur Abd: Soft, non-tender, no guarding Back: no CVA tenderness, no midline tenderness Ext: no edema, non-tender Skin: no rash Neuro: CN II-XII intact, Sensation grossly intact, Strength 5/5 in bilateral upper and lower extremities - Personal History Current Tetanus Diphtheria and Acellular Pertussis (TDAP): Unsure - Medical/Surgical History Hx Asthma: No Hx Chronic Respiratory Disease: No Hx Diabetes: No Hx Cardiac Disease: No Hx Renal Disease: No Hx Cirrhosis: No Hx Alcoholism: No Hx HIV/AIDS: No Hx Splenectomy or Spleen Trauma: No Other PMH: Gastric Reflux - Social History Smoking Status: Never smoked Constitutional: Initial Vital Signs Temperature (C) 36.4 C 07/25/18 03:43 Heart Rate 71 07/25/18 03:43 Respiratory Rate 16 07/25/18 03:43 Blood Pressure 123/78 H 07/25/18 03:43 O2 Sat (%) 99 07/25/18 03:43 O2 Delivery Mode Room Air Allergies/Adverse Reactions: No Known Allergies Allergy (Verified 12/11/17 02:26) Home Medications: Medication Instructions Recorded Ranitidine HCl [Zantac] 150 mg PO DAILY #14 tablet 07/16/18 Medical Decision Making ED Course/Re-evaluation: 28-year-old male well known to myself in this emergency department complaining of shortness of breath and some chest tightness. His lungs are completely clear. He is not tachycardic. He is satting 100% on room air. I do not see any evidence of acute respiratory process. There is no indication for D-dimer as he is perc negative. Symptoms are more consistent with reflux. Will give a GI cocktail and reassess. Patient is feeling significantly improved after GI cocktail. He is resting comfort. Denies any shortness of breath at this time. Will discharge with follow up with fire suppression captain, return for any concerns. He has been encouraged to continue taking his reflux medications. - Data Points Medications Given: Discontinued Medications Al Hydroxide/Mg Hydroxide (Maalox Susp) 30 ml PO ONCE ONE Stop: 07/25/18 04:12 Last Admin: 07/25/18 04:14 Dose: 30 ml Lidocaine (Lidocaine 2% Viscous) 15 ml PO ONCE ONE Stop: 07/25/18 04:12 Last Admin: 07/25/18 04:14 Dose: 15 ml Departure - Departure Disposition: Home, Routine, Self-Care Clinical Impression: GERD (gastroesophageal reflux disease) Condition: Good Instructions: Gastroesophageal Reflux Disease (ED) Additional Instructions: Please continue taking your reflux medications. Follow up with a fire suppression captain in 3-4 days for further evaluation. Return to the emergency department for uncontrolled abdominal pain, vomiting blood, dark black bowel movements, or any other concerns. Referrals: NONE *PRIMARY CARE P,. [Primary Care Provider] - As per Instructions
[2018-07-25 05:35] VITALS: BP 120/72
== END 2018-07-25 05:35 | disposition home or self-care (01) ==
DX: K21.9 Gastro-esophageal reflux disease without esophagitis (principal)

== ENCOUNTER → 2019-05-04 | Outpatient (CLI) | payer OTHER | LOC: BMCIMAGING 16:27 ==